=== PATIENT | female | born 1965 | race American Indian/Alaskan Native ===

== ENCOUNTER 2020-05-29 06:45 | Emergency (ER) | payer SELFPAY ==
[2020-05-29] MEDS ORDERED: cloNIDine 0.1 MG TAB PO ONE (08:33)
--- NOTE | 2020-05-29 09:06 | Emergency Department Report ---
ED General Adult HPI - General Chief complaint: Nosebleed Stated complaint: NOSE BLEED Time Seen by Provider: 05/29/20 08:13 Source: patient Mode of arrival: Ambulatory Limitations: No Limitations - History of Present Illness Initial comments: 34-year-old female who developed bilateral epistaxis at work. She states she took her blood pressure medicine this morning. She states that she has had several prior episodes of epistaxis but has never had to have nasal packing. At the time of my encounter she is not actively bleeding. She states that she has never seen an ENT doctor. Her initial blood pressure was significantly elevated. -: Sudden Associated Symptoms: denies other symptoms - Related Data Allergies Allergy/AdvReac Type Severity Reaction Status Date / Time No Known Allergies Allergy Unverified 05/29/20 07:06 ED Review of Systems ROS: Stated complaint: NOSE BLEED Other details as noted in HPI Constitutional: denies: chills, fever Eyes: denies: eye pain, vision change ENT: as per HPI, epistaxis. denies: ear pain, throat pain Respiratory: denies: cough, shortness of breath, wheezing Cardiovascular: denies: chest pain, palpitations Endocrine: no symptoms reported Gastrointestinal: denies: abdominal pain, nausea, diarrhea Genitourinary: denies: urgency, dysuria, discharge Musculoskeletal: denies: back pain, joint swelling, arthralgia Skin: denies: rash, lesions Neurological: denies: headache, weakness, paresthesias Psychiatric: denies: anxiety, depression Hematological/Lymphatic: denies: easy bleeding, easy bruising ED Past Medical Hx - Past Medical History Previous Medical History?: Yes Hx Hypertension: Yes - Surgical History Past Surgical History?: No - Social History Smoking Status: Never Smoker Substance Use Type: None ED Physical Exam - General Limitations: No Limitations General appearance: alert, in no apparent distress - Head Head exam: Present: atraumatic, normocephalic - Eye Eye exam: Present: normal appearance. Absent: scleral icterus - ENT ENT exam: Present: mucous membranes moist, other (Has occlusive device on nose no active bleeding) - Neck Neck exam: Present: normal inspection - Respiratory Respiratory exam: Present: normal lung sounds bilaterally. Absent: respiratory distress - Cardiovascular Cardiovascular Exam: Present: regular rate, normal rhythm. Absent: systolic murmur, diastolic murmur, rubs, gallop - GI/Abdominal GI/Abdominal exam: Present: soft, normal bowel sounds. Absent: distended, tenderness, guarding, rebound - Extremities Exam Extremities exam: Present: normal inspection - Back Exam Back exam: Present: normal inspection - Neurological Exam Neurological exam: Present: alert, oriented X3, CN II-XII intact. Absent: motor sensory deficit - Psychiatric Psychiatric exam: Present: normal affect, normal mood - Skin Skin exam: Present: warm, dry, intact, normal color. Absent: rash ED Course Vital Signs 05/29/20 05/29/20 05/29/20 06:59 08:29 08:30 Temperature 98.1 F Pulse Rate 92 H 99 H 93 H Respiratory 18 19 21 Rate Blood Pressure 192/106 163/104 Blood Pressure [Left] O2 Sat by Pulse 97 99 98 Oximetry 05/29/20 05/29/20 05/29/20 08:37 08:41 09:00 Temperature Pulse Rate 91 H 92 H 90 Respiratory 18 18 Rate Blood Pressure 163/104 163/106 Blood Pressure 163/104 [Left] O2 Sat by Pulse 97 94 Oximetry 05/29/20 05/29/20 05/29/20 09:30 10:00 10:20 Temperature Pulse Rate 78 85 91 H Respiratory 18 12 15 Rate Blood Pressure 170/100 173/104 Blood Pressure 151/87 [Left] O2 Sat by Pulse 94 97 Oximetry 05/29/20 10:39 Temperature Pulse Rate 91 H Respiratory Rate Blood Pressure 151/87 Blood Pressure [Left] O2 Sat by Pulse Oximetry - Reevaluation(s) Reevaluation #1: Patient's blood pressure now is 118/80. Her epistaxis has been resolved. At this time, we cannot determine what medication she is taking. She is instructed to call her primary care physicians for further management of her hypertension. 05/29/20 11:28 ED Medical Decision Making - Lab Data Result diagrams: 05/29/20 08:52 05/29/20 08:52 Laboratory Results - last 24 hr 05/29/20 05/29/20 05/29/20 08:52 08:52 08:52 WBC 7.1 RBC 4.25 Hgb 12.7 Hct 36.4 MCV 86 MCH 30 MCHC 35 H RDW 13.5 Plt Count 238 Lymph % (Auto) 25.6 Frederick % (Auto) 8.7 H Eos % (Auto) 5.2 H Baso % (Auto) 1.2 Lymph # (Auto) 1.8 Frederick # (Auto) 0.6 Eos # (Auto) 0.4 Baso # (Auto) 0.1 Seg Neutrophils % 59.3 Seg Neutrophils # 4.2 PT 13.5 INR 1.04 APTT 27.2 Sodium 140 Potassium 3.8 Chloride 102.2 Carbon Dioxide 32 H Anion Gap 10 BUN 21 H Creatinine 0.9 Estimated GFR > 60 BUN/Creatinine Ratio 23 Glucose 114 H Calcium 9.6 Total Bilirubin Direct Bilirubin Indirect Bilirubin AST ALT Alkaline Phosphatase NT-Pro-B Natriuret Pep Total Protein Albumin Albumin/Globulin Ratio Blood Type Antibody Screen 05/29/20 05/29/20 08:52 09:00 WBC RBC Hgb Hct MCV MCH MCHC RDW Plt Count Lymph % (Auto) Frederick % (Auto) Eos % (Auto) Baso % (Auto) Lymph # (Auto) Frederick # (Auto) Eos # (Auto) Baso # (Auto) Seg Neutrophils % Seg Neutrophils # PT INR APTT Sodium Potassium Chloride Carbon Dioxide Anion Gap BUN Creatinine Estimated GFR BUN/Creatinine Ratio Glucose Calcium Total Bilirubin 0.30 Direct Bilirubin < 0.2 Indirect Bilirubin 0.1 AST 30 ALT 32 Alkaline Phosphatase 147 H NT-Pro-B Natriuret Pep 215.9 Total Protein 7.6 Albumin 3.8 L Albumin/Globulin Ratio 1.0 Blood Type B POSITIVE Antibody Screen Negative Critical care attestation.: If time is entered above; I have spent that time in minutes in the direct care of this critically ill patient, excluding procedure time. ED Disposition Clinical Impression: Poorly-controlled hypertension, Epistaxis Disposition: TO HOME OR SELFCARE Is pt being admited?: No Does the pt Need Aspirin: No Condition: Stable Instructions: Hypertension, Adult, [id number] Additional Instructions: Call your primary care physician and discuss your blood pressure being poorly controlled. Check your blood pressure frequently. Avoid laying down flat for the next 24 hours as this may increase the risk of nosebleed. Referrals: PRIMARY CARE, [Primary Care Provider] - 3-5 Days Time of Disposition: 11:29
[2020-05-29 09:10] LABS: Basophils # (Auto) 0.1 K/mm3 (0.0-0.1); Basophils % (Auto) 1.2 % (0.0-1.8); Eosinophils # (Auto) 0.4 K/mm3 (0.0-0.4); Eosinophils % (Auto) 5.2 % (0.0-4.3); Hematocrit 36.4 % (30.3-42.9); Hemoglobin 12.7 gm/dl (10.1-14.3); Lymphocytes # (Auto) 1.8 K/mm3 (1.2-5.4); Lymphocytes % (Auto) 25.6 % (13.4-35.0); Mean Corpuscular HGB Conc 35 % (30-34); Mean Corpuscular Volume 86 fl (79-97); Monocytes # (Auto) 0.6 K/mm3 (0.0-0.8); Monocytes % (Auto) 8.7 % (0.0-7.3); Platelet Count 238 K/mm3 (140-440); Red Blood Count 4.25 M/mm3 (3.65-5.03); Red Cell Distribution Width 13.5 % (13.2-15.2)
[2020-05-29 09:31] LABS: BUN/Creatinine Ratio 23; Blood Urea Nitrogen 21 mg/dL (7-17); Calcium 9.6 mg/dL (8.4-10.2); Hemolysis Index 2
[2020-05-29 09:33] LABS: INR 1.04 (0.87-1.13)
[2020-05-29 09:34] LABS: Partial Thromboplastin Time 27.2 Sec. (24.2-36.6)
[2020-05-29 10:20] VITALS: BP 151/87
[2020-05-29] MEDS ORDERED: hydrALAZINE 25 MG TAB PO ONE (10:23)
[2020-05-29 10:30] LABS: Alanine Aminotransferase 32 units/L (7-56); Albumin 3.8 g/dL (3.9-5)
[2020-05-29 10:46] LABS: Bilirubin,Direct < 0.2 mg/dL (0-0.2)
== END 2020-05-29 12:13 | disposition home or self-care (01) ==
LOC: ED 06:45
DX: R04.0 Epistaxis (principal); I10 Essential (primary) hypertension
CPT/HCPCS: 36415; 80048; 80076; 83880; 85025; 85610; 85730; 86850; 86900; 86901